=== PATIENT | female | born 1985 | race Asian ===

== ENCOUNTER 2016-04-27 12:09 | Outpatient (CLI) | payer OTHER ==
[~2016-04-27] VITALS: Ht 160 cm; Wt 88.0 kg
[~2016-04-27 12:09] MED LIST: AMIT25TA22 PO; FOLI1TAB26 PO; LORTAB1 TAB PO; PROM25TA52 PO; ZOLP10TA2 PO
[2016-04-27 12:10] VITALS: BP 110/63; TEMP 100.5
== END 2016-04-27 19:11 | disposition home or self-care (01) ==
LOC: INF 12:09
DX: E86.0 Dehydration (principal)
CPT/HCPCS: 96360; 96361

== ENCOUNTER 2020-08-04 14:12 | Outpatient (CLI) | payer OTHER ==
[~2020-08-04] VITALS: Ht 160 cm; Wt 80.3 kg
== END 2020-08-04 20:31 | disposition home or self-care (01) ==
LOC: INF 14:12
PROVIDERS: ATTEND Family Medicine
DX: D57.1 Sickle-cell disease without crisis (principal)
CPT/HCPCS: 96361; 96365; 96375; J0696; J1885